=== PATIENT | female | born 1970 | race Caucasian/White ===

== ENCOUNTER 2016-12-24 14:25 | Emergency (ER) | payer OTHER ==
--- NOTE | ~2016-12-24 | CR282 ---
[facility] A Service of [facility] RADIOLOGY TEXT RESULTS PATIENT: JOANNA MULLINS LOCATION: SED : 68 UNIT #: [id number] AGE: [address]: Nori Wooten SEX: F ORDER DR: [id number] [address] [address] [id number] MR#: [id number] Acc #: [id number] NAME: JOANNA MULLINS. : 1970 SEX: F STUDY DATE/TIME: 12/24/2016 14:47 UNIT: SED ROOM: STUDY DESCRIPTION: CR Wrist Min 3 View Rt Attending Physician: Nori Wooten Pa-C Ordering Physician: Nori Wooten Pa-C Primary Care Physician: Leslie Ibrahim M.D. MEDICAL IMAGING REPORT This report is preliminary unless electronic signature is present. EXAM Right wrist series. DATE OF EXAM 12/24/2016 HISTORY Fall. Hit arm. Fall injuring arm right. Happened 1.5 hours prior to arrival. REPORT AP, lateral and oblique radiographs of the right wrist are presented. COMPARISON No comparisons. Comparison with any prior wrist series would be useful. FINDINGS There is cortical irregularity and linear lucency along the posterior aspect of the distal radial metaphyseal region on the lateral view and there is a suggestion of some trabecular impaction transversely across the distal radial metaphyseal region, less than a centimeter from the articular surface. The appearance is concerning for nondisplaced transverse slightly impacted fracture in this region. Please correlate with mechanism of injury and location of patient's pain. On the basis of the lateral radiograph, it is possible the fracture is incomplete, but I would favor complete nondisplaced and impacted fracture. There is on lateral view, some displacement of the pronator quadratus fat-pad anteriorly which may reflect edema related to the fracture. No other potential fractures are seen. The carpal bones themselves are intact. Joint space relationships are normal. Visualized proximal hand intact. No soft tissue defect, subcutaneous air or radiodense foreign body. If it would assist in management, the wrist could be further evaluated with CT. STS. [facility] A Service of [facility] RADIOLOGY TEXT RESULTS PATIENT: JOANNA MULLINS LOCATION: SED : [birth year] UNIT #: [id number] AGE: [address]: Nori Wooten SEX: F ORDER DR: Dictated by... Christo Bartlett M.D. THIS IS AN ELECTRONICALLY VERIFIED REPORT Christo Bartlett M.D. at 12/27/2016 8:19 PM Heladio TD: 12/24/2016 21:03 JOB #: [id number] MEDICAL IMAGING REPORT Page 1 of 1
[~2016-12-24 14:25] MED LIST: AMPYRA10 MG PO; CYMBALTA PO; EXFORGE 5-160 M1 TAB PO; FISH OIL 1,2001 CAP PO; HYDROCODON-ACE1 EAC1 PO; NEURONTIN PO; NEURONTIN100 MG PO; PROTANDIM PO; TECFIDERA240 MG PO; TYSABRI IV; VITAMIN B-121000 MC1 PO; VITAMIN B12-FO1 EACH PO; VITAMIN D1000 UNI1 PO; ZANAFLEX PO; ZANAFLEX2 M1 PO; ZOLOFT PO
[2016-12-24] MEDS ORDERED: LOSARTAN POTASS50 MG PO (14:40)
[2016-12-24] MEDS ORDERED: AMLODIPINE BESYL5 MG PO (14:40)
[2016-12-24] MEDS ORDERED: MYRBETRIQ25 MG PO (14:40)
[2016-12-24] MEDS ORDERED: MELATONIN10 M2 PO (14:41)
[2016-12-24] MEDS ORDERED: BENADRYL25 M3 PO (14:41)
== END 2016-12-24 16:03 | disposition home or self-care (01) ==
LOC: SED 14:25
DX: S52.501A Unspecified fracture of the lower end of right radius, initial encounter for closed fracture (principal); I10 Essential (primary) hypertension; Z90.49 Acquired absence of other specified parts of digestive tract; W19.XXXA Unspecified fall, initial encounter; Y92.009 Unspecified place in unspecified non-institutional (private) residence as the place of occurrence of the external cause; Z79.899 Other long term (current) drug therapy
CPT/HCPCS: 73110; 99283